=== PATIENT | male | born 1950 | race American Indian/Alaskan Native ===

== ENCOUNTER 2017-10-28 13:57 | Emergency (ER) | payer MEDICARE ==
[2017-10-28 14:34] LABS: Basophils % (Auto) 0.8 % (0.0-1.8); Eosinophils % (Auto) 1.9 % (0.0-4.3); Hematocrit 43.1 % (35.5-45.6); Hemoglobin 13.7 gm/dl (11.8-15.2); Mean Corpuscular HGB Conc 32 % (32-34); Mean Corpuscular Hemoglobin 30 pg (28-32); Mean Corpuscular Volume 93 fl (84-94); Platelet Count 157 K/mm3 (140-440); Red Blood Count 4.65 M/mm3 (3.65-5.03); Red Cell Distribution Width 16.3 % (13.2-15.2); White Blood Count 7.2 K/mm3 (4.5-11.0)
[2017-10-28] MEDS ORDERED: ANTIVERT PO ONE (14:42)
[2017-10-28 14:44] LABS: INR 1.01 (0.87-1.13)
--- NOTE | 2017-10-28 14:44 | Emergency Department Report ---
HPI - General Chief Complaint: Dizziness Time Seen by Provider: 10/28/17 14:41 - HPI HPI: Room 5 The patient is a 67-year-old male presenting with a chief complaint of dizziness. The patient states "feel dizzy and had blurred vision for the past hour. Patient denies chest pain, shortness of breath, nausea/vomiting, fever or recent trauma. The patient states bending his head forward increases the dizziness Location: Head Duration: 1 Hour Quality: Dizziness Severity: Moderate Modifying factors: [see above] Context: [see above] Mode of transportation: [not driving] ED Past Medical Hx - Past Medical History Previous Medical History?: Yes Hx Hypertension: Yes Hx CVA: Yes Additional medical history: Myocardial infarction in 2015 - Surgical History Past Surgical History?: No - Family History Family history: no significant - Social History Smoking Status: Current Every Day Smoker (1/2 pack per day) Substance Use Type: None (denies illicit drug use), Alcohol - Medications Home Medications: Home Medications Medication Instructions Recorded Confirmed Last Taken Type Aspirin EC 81 mg PO DAILY 10/28/17 10/28/17 Unknown History AtorvaSTATin 80 mg PO DAILY 10/28/17 10/28/17 Unknown History Carvedilol 25 mg PO DAILY 10/28/17 10/28/17 Unknown History Lisinopril 20 mg PO DAILY 10/28/17 10/28/17 Unknown History Meclizine [Antivert] 25 mg PO TID PRN #20 tablet 10/28/17 Unknown Rx Nitroglycerin 0.4 mg PO PRN PRN 10/28/17 10/28/17 Unknown History Spironolactone 25 mg PO DAILY 10/28/17 10/28/17 Unknown History cloNIDine 0.1 mg PO DAILY 10/28/17 10/28/17 Unknown History ED Review of Systems ROS: Stated complaint: DIZZYNESSL/WEAKNESS Other details as noted in HPI Constitutional: denies: fever Eyes: vision change ENT: denies: throat pain Respiratory: denies: shortness of breath Cardiovascular: denies: chest pain Gastrointestinal: denies: abdominal pain, nausea, vomiting Genitourinary: denies: dysuria Musculoskeletal: denies: back pain Neurological: other (dizziness). denies: headache Physical Exam - Physical Exam Vital Signs: Vital Signs 10/28/17 14:10 Temperature 97.8 F Pulse Rate 74 Respiratory 16 Rate Blood Pressure 108/70 O2 Sat by Pulse 96 Oximetry Physical Exam: GENERAL: The patient is well-developed well-nourished male lying on stretcher not appearing to be in acute distress. [] HEENT: Normocephalic. Atraumatic. Extraocular motions are intact. Patient has moist mucous membranes. No nystagmus NECK: Supple. Trachea midline CHEST/LUNGS: Clear to auscultation. There is no respiratory distress noted. HEART/CARDIOVASCULAR: Regular. There is no tachycardia. There is no gallop rub or murmur. ABDOMEN: Abdomen is soft, nontender. Patient has normal bowel sounds. There is no abdominal distention. SKIN: There is no rash. There is no edema. There is no diaphoresis. NEURO: The patient is awake, alert, and oriented. The patient is cooperative. The patient has no focal neurologic deficits. The patient has normal speech. Cranial nerves II through XII grossly intact, no drift MUSCULOSKELETAL: There is no evidence of acute injury. ED Course Vital Signs 10/28/17 14:10 Temperature 97.8 F Pulse Rate 74 Respiratory 16 Rate Blood Pressure 108/70 O2 Sat by Pulse 96 Oximetry - Reevaluation(s) Reevaluation #1: 10/28/17 16:39 Patient states he feels better - Consultations Consultation #1: 10/28/17 14:44 EKG sent to and discussed with Dr. Manning- early repolarization. No STEMI ED Medical Decision Making - Lab Data Result diagrams: 10/28/17 14:22 10/28/17 14:22 Laboratory Tests 10/28/17 10/28/17 10/28/17 14:21 14:22 14:22 WBC 7.2 RBC 4.65 Hgb 13.7 Hct 43.1 MCV 93 MCH 30 MCHC 32 RDW 16.3 H Plt Count 157 Lymph % (Auto) 20.0 Wells % (Auto) 7.1 Eos % (Auto) 1.9 Baso % (Auto) 0.8 Lymph # 1.4 Wells # 0.5 Eos # 0.1 Baso # 0.1 Seg Neutrophils % 70.2 H Seg Neutrophils # 5.0 PT 13.8 INR 1.01 APTT 26.0 Thrombin Time 15.4 Sodium Potassium Chloride Carbon Dioxide Anion Gap BUN Creatinine Estimated GFR BUN/Creatinine Ratio Glucose POC Glucose 98 Calcium Troponin T 10/28/17 14:22 WBC RBC Hgb Hct MCV MCH MCHC RDW Plt Count Lymph % (Auto) Wells % (Auto) Eos % (Auto) Baso % (Auto) Lymph # Wells # Eos # Baso # Seg Neutrophils % Seg Neutrophils # PT INR APTT Thrombin Time Sodium 138 Potassium 4.1 Chloride 100.2 Carbon Dioxide 23 Anion Gap 19 BUN 14 Creatinine 1.0 Estimated GFR > 60 BUN/Creatinine Ratio 14 Glucose 109 H POC Glucose Calcium 8.8 Troponin T < 0.010 - EKG Data -: EKG Interpreted by Me EKG shows normal: sinus rhythm Rate: normal - EKG Data When compared to previous EKG there are: previous EKG unavailable Interpretation: nonspecific ST-T wave gadiel (still elevation/early repolarization in leads V1, V2, V3, 4, V5, V6) - Radiology Data Radiology results: report reviewed (CT head), image reviewed (CT head) CT head without contrast: Neuro deficits under 6 hours. Axial images are performed. There is moderate calcification in the carotid siphons bilaterally. There is mild diminished periventricular white matter change. There is a focal area of parenchymal hypodensity in the left frontotemporal region with no mass effect and no hemorrhage. The adjacent sulci appears slightly large. There is diminished attenuation in the left caudate nucleus. No hemorrhage and no mass effect. No extracerebral collections. The visualized bones and paranasal sinuses are unremarkable. Impressions: 1. Bilateral infarcts of indeterminate age. No acute changes identified and no hemorrhage. 2. Micro-ischemic white matter change bilaterally. Transcribed By: [facility] Dictated By: MARIA M BERMUDEZ MD Electronically Authenticated By: MARIA M BERMUDEZ MD Signed Date/Time: 10/28/17 144 DD/ TD/TT: 10/28/17 1441 - Differential Diagnosis vertigo, ACS Critical care attestation.: If time is entered above; I have spent that time in minutes in the direct care of this critically ill patient, excluding procedure time. ED Disposition Clinical Impression: Vertigo Disposition: DC-01 TO HOME OR SELFCARE Is pt being admited?: No Does the pt Need Aspirin: No Condition: Stable Instructions: Vertigo (ED) Additional Instructions: Return to the emergency department immediately should you develop worsening symptoms, fever, inability to tolerate food or liquid or any other concerns. Prescriptions: Meclizine [Antivert] 25 mg PO TID PRN #20 tablet PRN Reason: Vertigo Referrals: PRIMARY CARE, [Primary Care Provider] - 3-5 Days LETICIA AVALOS MD [Staff Physician] - 3-5 Days (Dr. Avalos is a neurologist. Please follow-up with him for further evaluation) Time of Disposition: 16:41
[2017-10-28 14:55] LABS: Anion Gap 19 mmol/L; BUN/Creatinine Ratio 14; Blood Urea Nitrogen 14 mg/dL (9-20); Calcium 8.8 mg/dL (8.4-10.2); Carbon Dioxide 23 mmol/L (22-30); Chloride 100.2 mmol/L (98-107); Glucose 109 mg/dL (75-100); Potassium 4.1 mmol/L (3.6-5.0); Sodium 138 mmol/L (137-145)
--- NOTE | 2017-10-28 14:58 | Cat Scan Report ---
CT head without contrast: Neuro deficits under 6 hours. Axial images are performed. There is moderate calcification in the carotid siphons bilaterally. There is mild diminished periventricular white matter change. There is a focal area of parenchymal hypodensity in the left frontotemporal region with no mass effect and no hemorrhage. The adjacent sulci appears slightly large. There is diminished attenuation in the left caudate nucleus. No hemorrhage and no mass effect. No extracerebral collections. The visualized bones and paranasal sinuses are unremarkable. Impressions: 1. Bilateral infarcts of indeterminate age. No acute changes identified and no hemorrhage. 2. Micro-ischemic white matter change bilaterally.
[2017-10-28 16:39] VITALS: BP 125/82
== END 2017-10-28 16:57 | disposition home or self-care (01) ==
LOC: ED 13:57
DX: R42 Dizziness and giddiness (principal); I10 Essential (primary) hypertension; Z86.73 Personal history of transient ischemic attack (TIA), and cerebral infarction without residual deficits; Z86.72 Personal history of thrombophlebitis
CPT/HCPCS: 36415; 70450; 80048; 82962; 84484; 85025; 85610; 85670; 85730; 93005; 93010